=== PATIENT | female | born 1940 | race Caucasian/White ===

== ENCOUNTER 2019-07-10 10:30 | Emergency (ER) | payer MEDICARE ==
[2019-07-10 10:48] LABS: #Eosinphils 0.1 thou/uL (0.0-0.7); #Lymphocytes 1.3 thou/uL (1.20-3.40); #Monocytes 0.6 thou/uL (0.11-0.59); #Neutrophils 4.4 thou/uL (1.40-6.50); %Basophils 0.1 % (0.0-1.0); %Eosinophils 2.2 % (0.0-10.0); %Lymphocytes 20.1 % (21.0-51.0); %Monocytes 9.2 % (0.0-10.0); %Neutrophils 68.4 % (42.0-75.0); Hemoglobin 10.7 g/dL (12.0-16.0); Mean Corpuscular HGB CONC 33.3 g/dL (32.0-36.0); Mean Corpuscular Hemoglobin 31.1 pg (27.0-31.0); Mean Corpuscular Volume 93.3 fL (78.0-98.0); Mean Platelet Volume 8.1 fL (7.4-10.4); Platelet Count 264 thou/uL (130-400); RBC Distribution Width 12.9 % (11.5-14.5); Red Blood Cell (RBC) Count 3.45 mill/uL (4.20-5.40); White Blood Cell (WBC) Count 6.5 thou/uL (4.8-10.8)
--- NOTE | 2019-07-10 10:51 | CT ---
CT Head without IV contrast COMPARISON: 12/09/2017 HISTORY: Level 1 stroke alert. No onset aphasia. TECHNIQUE: Axial CT imaging at 5 mm intervals from vertex through skull base without contrast FINDINGS: There is no evidence of a hemorrhage, mass effect, or midline shift. There is decreased attenuation s een in the periventricular white matter which is nonspecific but likely attributable to chronic small vessel ischemic changes and similar to prior study. Remote lacunar infarctions are again seen i n each basal ganglia. However, there are small low-density foci seen in the right thalamus and right basal ganglia which were not definitely seen on the prior exam also compatible with lacunar inf arctions of indeterminate age. There is also an indeterminate age. Small lacunar infarction in the right aspect of the cecily. There is a stable low-density area seen within the watershed distribution o f the right frontal and parietal lobes also seen on prior study related to remote infarction. No acute cortical infarction is seen. There is mild cerebral volume loss. The ventricular system is norm al in size, shape, and position for the degree of sulcal atrophy. Visualized paranasal sinuses are clear. Osseous structures appear intact. IMPRESSION: 1. Lacunar infarctions within the right thalamus and right basal ganglia as well as right cecily which were not appreciated on the prior study. Although the exact ages are indeterminate based on CT exam, these lacunar infarctions have developed in the interim when compared study on 12/09/2017. 2. Remote lacunar infarctions in each basal ganglia. 3. Remote infarction watershed distribution of the right frontal and parietal lobes stable from prior study. 4. Chronic small vessel ischemic changes and cerebral volume loss. 5. Above findings discussed with Dr. Babcock in the emergency department on 07/10/2019 at 1048 hour s.
[2019-07-10 10:54] LABS: INR-International Normal Ratio 1.2; PTT 34.9 SEC (22.9-36.1); Prothrombin Time 15.3 SEC (12.0-14.7)
[2019-07-10 11:01] LABS: ALT (SGPT) 9 U/L (8-55); AST (SGOT) 19 U/L (5-34); Albumin 3.8 g/dL (3.4-4.8); Alkaline Phosphatase 107 U/L (40-110); Anion Gap 16 mmol/L (10-20); BUN (Urea Nitrogen) 20 mg/dL (9.8-20.1); Bilirubin, Total 0.3 mg/dL (0.2-1.2); CK (CPK) 393 U/L (29-168); Calc. Creatinine Clearance 0 mL/min (70-130); Calcium 8.1 mg/dL (7.8-10.44); Carbon Dioxide 17 mmol/L (23-31); Chloride 105 mmol/L (98-107); Estimated GFR-MDRD 35; Globulin 3.9 g/dL (2.4-3.5); Glucose 235 mg/dL (83-110); Potassium 4.3 mmol/L (3.5-5.1); Protein, Total 7.7 g/dL (6.0-8.3); Sodium 134 mmol/L (136-145)
--- NOTE | 2019-07-10 11:20 | CT ---
CT ANGIOGRAM HEAD AND NECK WITH IV CONTRAST AND 3D RECONSTRUCTIONS: HISTORY: New onset aphasia, level 1 stroke alert. COMPARISON: CTA neck on 05/21/2012. FINDINGS: Dense vascular calcifications are seen in the aortic arch and involving the great vessels, the great vessels demonstrate a normal arrangement and do appear patent. Bilateral subclavian arteries as well as bilateral common carotid arteries are patent. There are vascular calcifications involving the internal and external carotid arteries bilaterally, but no significant stenosis is seen involving the internal carotid arteries bilaterally. The right vertebral artery is dominant and patent. The origin of the left vertebral artery is not wel l seen and appears to demonstrate severe narrowing at the origin. There is severe atherosclerotic irregularity and narrowing involving the distal left vertebral artery at the skull base. A similar fi nding was seen on the study in 2011. The basilar artery is patent. There is atherosclerotic irregularity and narrowing involving the mid r ight posterior cerebral artery with a short segment of severe narrowing involving the left posterior cerebral artery. The left posterior cerebral artery is not imaged on prior CTA exam. The anterior cerebral and middle cerebral arteries are patent. Dense vascular calcifications are seen within the carotid siphons limiting adequate evaluation of the internal carotid arteries in each siphon. No aneurysm is seen within the limitations of the technique of this exam. A dual-lead left subclavian cardiac pacemaking device is noted in place. Postsurgical changes related to median sternotomy are partially visualized. Volume loss involving the visualized upper lung zones, this exam is obtained in expiratory phase of i maging. Surgical clips are seen in the base of the neck on the right. Remote infarction in the watershed distribution of the right posterior cerebral/middle cerebral arter y is noted with lacunar infarctions in each basal ganglia and evidence of chronic small vessel ischemic changes. This was seen on recent noncontrast CT head. IMPRESSION: 1. Dominant right vertebral artery with suggestion of moderate to severe focal narrowing at the origi n of the left vertebral artery. There is also atherosclerotic irregularity and very small caliber involving the distal left vertebral artery similar to study in 2012. 2. Dense vascular calcifications involving the carotid arteries, but no significant stenosis is seen involving the internal carotid arteries bilaterally. 3. Atherosclerotic irregularity and moderate narrowing involving the mid right posterior cerebral art allie with a severe focal short segment of narrowing involving the proximal and mid left posterior cerebral artery. 4. The bilateral middle cerebral and anterior cerebral arteries appear patent. 5. Above findings were discussed with Dr. Babcock in the emergency department on 07/10/2019 at 1114 hours. CODE CR Transcribed Date/Time: 07/10/2019 12:52 PM
[2019-07-10] MEDS ORDERED: Aspirin 325 MG TAB ONE (11:33)
[2019-07-10] MEDS ORDERED: Aspirin 300 MG Suppository ONE (11:37)
[2019-07-10 12:38] LABS: Bacteria/HPF None Seen HPF (None Seen); Bilirubin Negative (Negative); Blood, Urine Negative (Negative); Clarity Clear (Clear); Glucose, Urine (Dipstick) Normal (Negative); Leukocyte 250 Leu/uL (Negative); Nitrite Negative (Negative); Protein, Urine (Dipstick) 10 mg/dL (Neg-Trace); RBC/HPF None Seen HPF (0-3); Urobilinogen Normal mg/dL (Less than 2)
[2019-07-10] MEDS ORDERED: ISOVUE-370 76%-LOCM 1 ML ONE (13:08)
== END 2019-07-10 14:56 | disposition short-term general hospital (02) ==
LOC: ERS 10:30
DX: I63.9 Cerebral infarction, unspecified (principal); E66.9 Obesity, unspecified; F32.9 Major depressive disorder, single episode, unspecified
CPT/HCPCS: 36416; 51701; 70450; 70496; 70498; 80053; 81003; 81015; 82550; 84484; 85025; 85610; 85730; 93005; A4353; Q9966